=== PATIENT | male | born 1945 | race Caucasian/White ===

== ENCOUNTER → 2016-11-04 12:19 | Outpatient (CLI) | payer MEDICARE, OTHER | END | disposition home or self-care (01) | LOC: D.CT 12:19 | DX: R51 Headache (principal) ==

== ENCOUNTER → 2018-11-08 11:35 | Outpatient (CLI) | payer MEDICARE, OTHER | END | disposition home or self-care (01) | LOC: D.RAD 11:35 | PROVIDERS: ATTEND Family Medicine | DX: R13.10 Dysphagia, unspecified (principal) ==

== ENCOUNTER → 2018-11-23 09:07 | Outpatient (CLI) | payer MEDICARE, OTHER | END | disposition home or self-care (01) | LOC: D.MRI 09:07 | PROVIDERS: ATTEND Family Medicine | DX: R47.01 Aphasia (principal); I63.9 Cerebral infarction, unspecified ==

== ENCOUNTER → 2019-02-09 12:22 | Outpatient (CLI) | payer MEDICARE, OTHER | END | disposition home or self-care (01) | LOC: D.RAD 12:22 | PROVIDERS: ATTEND Family Medicine | DX: R13.10 Dysphagia, unspecified (principal) ==

== ENCOUNTER 2019-04-16 06:34 | Day surgery (SDC) | payer MEDICARE, OTHER ==
[~2019-04-16] VITALS: Ht 172.7 cm; Wt 73.5 kg
[2019-04-16 06:48] LABS: BASOPHILS 0.3 % (0-2); EOSINOPHILS 1.2 % (0-7); HEMATOCRIT 47.2 % (42.0-54.0); HEMOGLOBIN 16.7 g/dL (13.5-17.5); IMMATURE GRANULOCYTES 0.2 % (0-5); LYMPHOCYTES 25.8 % (15-50); MCH 34.4 pg (26.0-34.0); MCHC 35.4 g/dL (31.0-37.0); MCV 97.3 fL (80.0-100.0); MEAN PLATELET VOLUME 8.9 fL (7.4-10.4); MONOCYTES 9.3 % (2-11); NEUTROPHILS 63.2 % (40-80); PLATELET COUNT 224 10x3/uL (130-400); RBC 4.85 10x6/uL (4.20-6.10); RDW 11.1 % (11.5-14.5); WBC 6.1 10x3/uL (4.8-10.8)
[2019-04-16 06:57] LABS: APTT 33.8 SECONDS (22.8-39.4); INR 1.02 (0.85-1.17); PROTIME 12.9 SECONDS (11.6-15.0)
[2019-04-16 07:04] LABS: CALC OSMOLALITY 281 mosm/kg (275-300); CALCIUM 9.5 mg/dL (8.5-10.1); CARBON DIOXIDE 27.6 mmol/L (21.0-32.0); CHLORIDE - SERUM 104 mmol/L (98-107); CREATININE - SERUM 0.9 mg/dL (0.6-1.3); GLUCOSE 108 mg/dL (74-106); POTASSIUM - SERUM 3.9 mmol/L (3.5-5.1); SODIUM 141 mmol/L (136-145); UREA NITROGEN 13 mg/dL (7-18); eGFR NON AFRICAN AMERICAN 88 mL/min (90-120)
[2019-04-16] MEDS ORDERED: NORVASC10 MG (07:24)
[2019-04-16] MEDS ORDERED: PROTONIX40 MG PO (07:24)
[2019-04-16] MEDS ORDERED: NUEDEXTA 20-101 EACH PO (07:26)
[2019-04-16] MEDS ORDERED: BAYER CHEWABLE81 MG PO (07:29)
[2019-04-16] MEDS ORDERED: MULTI-DAY VITAM1 TAB PO (07:29)
[2019-04-16] MEDS ORDERED: MEGARED (07:30)
[2019-04-16 07:51] VITALS: BP 171/95; Ht 172.7 cm; Wt 73.5 kg
[2019-04-16] MEDS ORDERED: ULTRAM50 MG PO (10:41)
--- NOTE | 2019-04-16 12:24 | OP ---
PATIENT NAME: JASON BERGER MEDICAL RECORD: [id number] :47 LOCATION:D.OPS ADMISSION DATE: SURGEON: CARLINE MON MD DATE OF OPERATION: 04/16/2019 SURGEON: Carline Mon MD PREOPERATIVE DIAGNOSIS: Scalp foreign body. POSTOPERATIVE DIAGNOSIS: Scalp foreign body. PROCEDURE PERFORMED: Excisional biopsy of scalp foreign body. ANESTHESIA: General. COMPLICATIONS: None. SPECIMENS: Scalp lesion 4 cm in length x 2 cm in width x 1 cm in depth. Case was clean. COMPLICATIONS: None. ESTIMATED BLOOD LOSS: 10 cc. OPERATIVE COURSE: After consent was obtained, the patient was taken to the operating room and placed in supine position on the operating table. Next, general anesthesia was given via endotracheal intubation. Timeout was taken to confirm the correct patient and procedure. The scalp was prepped and draped in typical sterile fashion. The site had been marked with the patient prior to going to the operating room, 10 cc of local anesthetic were injected, an elliptical incision was made 4 cm in length x 2 cm in width around the area of the palpable foreign body. Once the skin was incised with a #15 blade scalpel, dissection then continued down through the skin. After the skin was incised, remaining ports of injection was performed with electrocautery. The specimen was passed off the field and sent for permanent pathology. Hemostasis obtained with electrocautery. The wound was closed in 2 layers. Deep layer was closed with 3-0 Vicryl suture. The skin was closed with a 4-0 Stratafix suture in a subcuticular fashion. The wound was then dressed with Mastisol and Steri-Strips. At the end of the case, all needle and instrument counts were correct. No complications occurred. The patient extubated and transferred to the PACU in stable condition. TRANSINT:[id number] Voice Confirmation ID: [id number] DOCUMENT ID: [id number] CARLINE MON MD at 1224 CC: [id number] DICTATION DATE: 04/16/19 1045 INTERACTIVE MEDIA DIRECTOR: 04/16/19 1056 [facility] [address] [place] [address]
--- NOTE | 2019-04-16 15:53 | NUR ---
1316 PT HOLDING O2 SAT ON ROOM AIR. IV DC'D. CATHETER TIP INTACT. NO BLEEDING AT SITE. BANDAID APPLIED. DISCHARGE INSTRUCTIONS GIVEN AND PT VOICES UNDERSTANDING. STATES HE IS STARTING TO FEEL SOME PAIN ON SCALP BUT NOT ENOUGH FOR PAIN MEDICATION. PT AWARE THAT MD HAS E-SCRIBED PAIN MEDICINE TO PHARMACY AND HE WILL PICK IT UP.
== END 2019-04-16 13:29 | disposition home or self-care (01) ==
LOC: D.OPS 06:34 → D.PAN 09:45 → D.OPS 13:29
PROVIDERS: Anesthesiology; ATTEND Surgery
DX: M79.5 Residual foreign body in soft tissue (principal)